=== PATIENT | male | born 1965 | race Two or more races ===

== ENCOUNTER → 2019-01-26 | Outpatient (CLI) | payer OTHER ==
[~2019-01-26] VITALS: Ht 165.1 cm; Wt 76.7 kg
[~2019-01-26] MED LIST: no medication
--- NOTE | 2019-01-27 01:30 | Consultation ---
DATE OF CONSULTATION: 01/26/2019 CHIEF COMPLAINT: Screening colonoscopy evaluation and also chronic GERD. PAST MEDICAL HISTORY: History of arm fracture. PAST SURGICAL HISTORY: None. MEDICATIONS: None. ALLERGIES: No known allergy. FAMILY HISTORY: No family history of GI malignancies . SOCIAL HISTORY: The patient drinks alcohol daily. Also smokes 1 pack per day. Denies any IV drug abuse. REVIEW OF SYSTEMS: Positive for chronic GERD and mild constipation. PHYSICAL EXAMINATION: VITAL SIGNS: The patient is afebrile. Vital signs stable. HEENT: Normocephalic and atraumatic. Sclerae anicteric. NECK: Supple. No evidence of obvious lymphadenopathy. CARDIOVASCULAR: Regular rate and rhythm. Plus S1 and S2. No obvious murmur. LUNGS: Clear to auscultation bilaterally. ABDOMEN: Positive bowel sounds. Soft and nontender. No rebound. No guarding. No peritoneal sign. EXTREMITIES: No cyanosis. No clubbing. No edema. ASSESSMENT AND PLAN: This is a 53-year-old male, need for screening colonoscopy, also complained of chronic GERD for which he needs also endoscopy given his age of 53. The patient also had a mild elevated liver enzymes, which possibly can be due to alcohol. The patient was advised to stop drinking and repeat the laboratories in a month or 2. Meanwhile, we informed him of the risks and benefits of colonoscopy and endoscopy and he agreed. The patient was given the prep and instruction and we are pending scheduling when authorization is obtained. I want to thank for this kind referral. Stepan Hoff M.D. DR: CIARA JOB#: [id number] CC:
[2019-01-27 14:08] VITALS: BP 125/83
== END | disposition home or self-care (01) ==
LOC: PAN 13:18
DX: K21.9 Gastro-esophageal reflux disease without esophagitis (principal); K59.00 Constipation, unspecified; F17.210 Nicotine dependence, cigarettes, uncomplicated
CPT/HCPCS: G0463

== ENCOUNTER 2019-03-08 09:51 | Outpatient (CLI) | payer OTHER ==
--- NOTE | 2019-03-08 10:17 | General Progress Note ---
Assessment/Plan Assessment/Plan: HP positive gastritis poor colon prep treat fro HP repeat colonoscopy in 1 year RTC 3 months for Breath test Subjective ROS Limited/Unobtainable: Yes Allergies: Coded Allergies: No Known Allergies (Unverified , 01/27/19) Objective General Appearance: alert EENT: normal ENT inspection Neck: supple Cardiovascular: normal rate Respiratory/Chest: lungs clear Abdomen: normal bowel sounds, non tender, soft, hypoactive bowel sounds Stepan Hoff MD Mar 08, 2019 10:17
[2019-03-08 11:37] VITALS: BP 127/85
== END 2019-03-08 11:51 | disposition home or self-care (01) ==
LOC: PAN 09:51
DX: K29.70 Gastritis, unspecified, without bleeding (principal); B96.81 Helicobacter pylori [H. pylori] as the cause of diseases classified elsewhere
CPT/HCPCS: 99212